=== PATIENT | male | born 1960 | race Caucasian/White ===

== ENCOUNTER 2018-09-02 04:18 | Observation (INO) ==
--- NOTE | 2018-09-02 05:26 | ED ---
HPI General Chief complaint: Abdominal Pain Stated complaint: abd pain Time Seen by Provider: 09/02/18 04:45 Source: patient, EMS, RN notes reviewed and old records reviewed Mode of arrival: EMS Limitations: no limitations History of Present Illness HPI Narrative: 57-year-old man, history of paraplegia following a C-spine injury , presents emergency department with dark emesis, 5 episodes over the past 8 hours or so, in the setting of abdominal bloating, and possibly malfunctioning urinary catheter. Resides in a nursing facility. They sent him over after multiple episodes of what was described as coffee-ground emesis. Denies any blood in his stools. He states they were also having trouble with his catheter clogging but were able to flush it with reportedly successful resolution. He does feel like his abdomen is more more distended. Also some subjective chills. No other complaints. Related Data Home Medications Medication Instructions Recorded Confirmed baclofen 10 mg PO QID 09/02/18 09/02/18 betamethasone dipropionate 1 applic TOPICAL DAILY 09/02/18 09/02/18 docusate sodium [Colace] 100 mg PO BID 09/02/18 09/02/18 famotidine 20 mg PO DAILY 09/02/18 09/02/18 hydrocodone-acetaminophen 1 tab PO Q4H PRN 09/02/18 09/02/18 morphine 30 mg PO Q12H 09/02/18 09/02/18 morphine 30 mg PO Q4HR PRN 09/02/18 09/02/18 multivitamin with minerals 1 tab PO DAILY 09/02/18 09/02/18 nystatin 200,000 unit PO TID 09/02/18 09/02/18 trazodone 100 mg PO DAILY 09/02/18 09/02/18 Allergies Allergy/AdvReac Type Severity Reaction Status Date / Time No Known Allergies Allergy Uncoded 05/16/16 12:53 Review of Systems ROS: all other systems reviewed are negative PMFSH History History Provided By: Patient and Medical Record Medical History Medical History Anxiety (Acute) Gastrointestinal hemorrhage (Acute) Major depressive disorder (Acute) Constipation (Chronic) Neurogenic bladder (Chronic) 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 Tiny area of erythema right SI area. No other evidence of skin breakdown. HEAD: Atraumatic. Normocephalic. EYES: Pupils equal and round. No scleral icterus. No injection or drainage. ENT: No nasal bleeding or discharge. Mucous membranes pink and moist. NECK: Trachea midline. No JVD. CARDIOVASCULAR: Regular rate and rhythm. No murmur appreciated. RESPIRATORY: No accessory muscle use. Clear to auscultation. Breath sounds equal bilaterally. GASTROINTESTINAL: Abdomen appears somewhat distended. Tympanic to percussion. Baclofen pump on the left side of the abdomen. MUSCULOSKELETAL: No obvious deformities. No edema. Contracture deformities. NEUROLOGICAL: Awake and alert. Spastic quadriplegia. Procedures Hemaprompt Stool Procedural Steps Taken: specimen placed in appropriate test area, developer placed on specimen and control areas and controls appropriately positive and negative Hemaprompt Stool Result: positive Course Initial Documented Vital Signs Temperature 100.7 F H 09/02/18 05:29 Pulse Rate 105 H 09/02/18 05:29 Respiratory Rate 16 09/02/18 05:29 Blood Pressure 194/94 H 09/02/18 05:29 Pulse Oximetry 96 09/02/18 05:29 Last Documented Vital Signs Temperature 100.7 F H 09/02/18 05:29 Pulse Rate 105 H 09/02/18 05:29 Respiratory Rate 16 09/02/18 05:29 Blood Pressure 194/94 H 09/02/18 05:29 Pulse Oximetry 95 09/02/18 05:45 Medical Decision Making MDM Narrative Medical decision making narrative: 37-year-old man, quadriplegic, here with vomiting. Abdomen distended. Concern for obstruction. They also report some trouble with this Malone catheter. We will replace this. Will check labs. Reassess. FINAL: Patient with diffuse abdominal distention, distended stomach, constipation distended bowels, likely constipation and ileus. GI bleed also possible. Guaiac was positive. No emesis here but stomach could be full blood. Disimpacted of a large amount of fairly firm stool. Recommend admission for observation, monitoring. I spoke with Dr. Florez, will admit patient. Medical Screen Exam Complete: Yes Emergency Medical Condition: Yes Lab Data Result diagrams: 09/02/18 05:10 09/02/18 05:10 Lab Results 09/02/18 09/02/18 09/02/18 Range/Units 05:10 05:10 05:10 WBC 11.5 H (4.0-11.0) th/mm3 RBC 4.44 L (4.50-5.90) mil/mm3 Hgb 12.9 L (13.0-17.0) gm/dL Hct 39.3 (39.0-51.0) % MCV 88.4 (80.0-100.0) fL MCH 29.1 (27.0-34.0) pg MCHC 32.9 (32.0-36.0) % RDW 15.4 (11.6-17.2) % Plt Count 187 (150-450) th/mm3 MPV 9.0 (7.0-11.0) fL Neut % (Auto) 80.5 H (16.0-70.0) % Lymph % (Auto) 13.3 (9.0-44.0) % [place] % (Auto) 5.8 (0.0-8.0) % Eos % (Auto) 0.0 (0.0-4.0) % Baso % (Auto) 0.4 (0.0-2.0) % Neut # (Auto) 9.3 H (1.8-7.7) th/mm3 Lymph # (Auto) 1.5 (1.0-4.8) th/mm3 [place] # (Auto) 0.7 (0.0-0.9) th/mm3 Eos # (Auto) 0.0 (0.0-0.4) th/mm3 Baso # (Auto) 0.0 (0.0-0.2) th/mm3 WBC Differential . Differential Comment Auto diff final Sodium 136 (136-145) meq/L Potassium 3.7 (3.5-5.1) meq/L Chloride 94 L (98-107) meq/L Carbon Dioxide 33.5 H (21.0-32.0) meq/L Anion Gap 9 (5-15) meq/L BUN 18 (7-18) mg/dL Creatinine 0.42 L (0.60-1.30) mg/dL Estimated GFR Greater than 89 (>89) mL/min Random Glucose 128 H (74-106) mg/dL Lactic Acid 1.0 (0.4-2.0) mmol/L Calcium 8.3 L (8.5-10.1) mg/dL Magnesium 2.1 (1.5-2.5) mg/dL Total Bilirubin 0.4 (0.2-1.0) mg/dL AST 17 (15-37) U/L ALT 16 (12-78) U/L Alkaline Phosphatase 76 (45-117) U/L Total Protein 7.6 (6.4-8.2) g/dL Albumin 3.1 L (3.4-5.0) g/dL Imaging Data Radiologist's impression: Abdomen/Pelvis CT 09/02/18 05:07 CONCLUSION: 1. Consolidation and air bronchograms of the right lung base most characteristic of pneumonia or aspiration. 2. Mild dilatation and mural thickening of the distal esophagus possibly due to an esophagitis. Stomach mildly distended. 3. Severe constipation. Numerous nonobstructing bilateral renal calculi with partial staghorn calculus upper pole left kidney. 4. Previous right hip replacement. Chest X-Ray 09/02/18 05:07 CONCLUSION: Minimal subsegmental opacity in the lungs at the bases. No effusion or pneumothorax. Discharge Plan Discharge Disposition Patient Disposition: 30 Still Patient Physicians Team ED Provider: Vitaly Calderón Primary Care Provider: UNKNOWN, Rxs /Orders / Referrals /Forms Prescriptions: No Action multivitamin with minerals Tablet Extended Release 1 tab PO DAILY RF: 0 famotidine 20 mg Tablet 20 mg PO DAILY RF: 0 trazodone 100 mg Tablet 100 mg PO DAILY RF: 0 baclofen 10 mg Tablet 10 mg PO QID RF: 0 morphine 30 mg Tablet 30 mg PO Q4HR PRN (Reason: Pain) RF: 0 betamethasone dipropionate 0.05 % Cream 1 applic TOPICAL DAILY RF: 0 docusate sodium [Colace] 100 mg Capsule 100 mg PO BID RF: 0 nystatin 150 million unit Powder 200,000 unit PO TID RF: 0 hydrocodone-acetaminophen 10-300 mg Tablet 1 tab PO Q4H PRN (Reason: Pain) RF: 0 morphine 30 mg Tablet Extended Release 12hr 30 mg PO Q12H RF: 0 Status ED Status: With Doctor
[2018-09-02 05:28] LABS: Baso % (Auto) 0.4 % (0.0-2.0); Hematocrit 39.3 % (39.0-51.0); Hemoglobin 12.9 gm/dL (13.0-17.0); Lymph # (Auto) 1.5 th/mm3 (1.0-4.8); Lymph % (Auto) 13.3 % (9.0-44.0); Mean Corpuscular HGB Conc 32.9 % (32.0-36.0); Mean Corpuscular Hemoglobin 29.1 pg (27.0-34.0); Mean Corpuscular Volume 88.4 fL (80.0-100.0); Mono # (Auto) 0.7 th/mm3 (0.0-0.9); Mono % (Auto) 5.8 % (0.0-8.0); Neut # (Auto) 9.3 th/mm3 (1.8-7.7); Neut % (Auto) 80.5 % (16.0-70.0); Platelet Count 187 th/mm3 (150-450); Red Blood Count 4.44 mil/mm3 (4.50-5.90); Red Cell Distribution Width 15.4 % (11.6-17.2); White Blood Count 11.5 th/mm3 (4.0-11.0)
[2018-09-02 05:40] LABS: Albumin 3.1 g/dL (3.4-5.0); Anion Gap 9 meq/L (5-15); Aspartate Aminotransferase 17 U/L (15-37); Blood Urea Nitrogen 18 mg/dL (7-18); Calcium 8.3 mg/dL (8.5-10.1); Carbon Dioxide 33.5 meq/L (21.0-32.0); Chloride 94 meq/L (98-107); Glomerular Filtration Rate Greater Than 89 mL/min (>89); Glucose,Random 128 mg/dL (74-106); Magnesium 2.1 mg/dL (1.5-2.5); Potassium 3.7 meq/L (3.5-5.1); Sodium 136 meq/L (136-145)
[2018-09-02 05:41] LABS: Alanine Aminotransferase 16 U/L (12-78)
[2018-09-02 05:44] LABS: Alkaline Phosphatase 76 U/L (45-117); Total Protein 7.6 g/dL (6.4-8.2)
--- NOTE | 2018-09-02 05:58 | XR ---
EXAM DATE: 09/02/2018 5:46 AM EST AGE/SEX: 57 years / Male INDICATIONS: Abdominal pain. CLINICAL DATA: This is the patient's initial encounter. Patient reports that signs and symptoms have been present for 1 day and indicates a pain score of 6/10. MEDICAL/SURGICAL HISTORY: . Spastic quadriplegia. Neurogenic bladder. Chronic constipation. F usion, cervical. Total right hip replacement. Total bilateral shoulder replacements. COMPARISON: No prior exams available for comparison. FINDINGS: Scattered subsegmental opacity in the lungs. No effusion. No pneumothorax. Tortuous aorta. Previous b ilateral shoulder replacement. CONCLUSION: Minimal subsegmental opacity in the lungs at the bases. No effusion or pneumothorax. Electronically signed by: Ambrocio Holt MD 09/02/2018 5:57 AM EST
--- NOTE | 2018-09-02 06:15 | CT ---
EXAM DATE: 09/02/2018 6:04 AM EST AGE/SEX: 57 years / Male INDICATIONS: Abdominal pain and coffee ground emesis. CLINICAL DATA: This is the patient's initial encounter. Patient reports that signs and symptoms have been present for 2 days and indicates a pain score of 8/10. MEDICAL/SURGICAL HISTORY: . Neurogenic bladder, GI bleed . Right hip replacement ORAL CONTRAST: No oral contrast ingested. RADIATION DOSE: 6.98 CTDI (mGy) COMPARISON: No prior exams available for comparison. TECHNIQUE: Multiple contiguous axial images were obtained through the abdomen and pelvis following b olus infusion of 71 ml Omnipaque 350 (iohexol) nonionic water-soluble contrast as a single exam dos e. No oral contrast ingested. Using automated exposure control and adjustment of the mA and/or kV ac cording to patient size, radiation dose was kept as low as reasonably achievable to obtain optimal di agnostic quality images. DICOM format image data is available electronically for review and comparis on. FINDINGS: There is focal consolidation with air bronchograms at the right lung base most characteristic of bron chopneumonia. There is some dilatation and mural thickening of the distal esophagus. There is dilatat ion of the stomach with a large air-fluid level. No acute findings in the liver, spleen, adrenals or pancreas. Numerous bilateral renal calculi with p artial staghorn calculus upper pole left kidney. No hydronephrosis. There is severe constipation. Previous right hip replacement. Malone catheter present in bladder. Bone s osteopenic. CONCLUSION: 1. Consolidation and air bronchograms of the right lung base most characteristic of pneumonia or asp iration. 2. Mild dilatation and mural thickening of the distal esophagus possibly due to an esophagitis. Stom ach mildly distended. 3. Severe constipation. Numerous nonobstructing bilateral renal calculi with partial staghorn calcul us upper pole left kidney. 4. Previous right hip replacement. Electronically signed by: Ambrocio Holt MD 09/02/2018 6:14 AM EST
[2018-09-02] MEDS ORDERED: Bisacodyl 10 MG Supp RECTAL PRN (06:51)
[2018-09-02] MEDS ORDERED: Acetaminophen 325 MG Tablet PO PRN (06:51)
[2018-09-02] MEDS ORDERED: Non-Formulary Drug (Hydrocodone-Acetaminophen [Hydrocodone-Acetaminophen] 1 TAB) PO PRN (10:56)
[2018-09-02] MEDS ORDERED: Mineral Oil Enema 118 ML Bottle RECTAL PRN (10:58)
[2018-09-02] MEDS: Docusate Sodium 100 MG Capsule PO SCH ×2 (11:00→22:34)
[2018-09-02] MEDS: Famotidine 20 MG Tablet PO SCH (11:00)
[2018-09-02] MEDS: Morphine Sulfate 30 MG SR Tablet PO SCH ×2 (11:00→22:34)
--- NOTE | 2018-09-02 11:07 | P.HPIM ---
History of Present Illness Primary Care Physician: UNKNOWN History of Present Illness: 57-yo M [facility] resident with h/o quadriplegia following a C-spine injury presented with coffee ground emesis x1 day. Denied hematochezia or melena. He has no abdominal pain. He reports abdominal bloating and constipation. He vomited twice prior to admission. He has not had any fever,chills, or shortness of breath. There was suspicion for urinary catheter malfunction but this was successfully flushed. ROS is negative. On presentation patient had stable vitals, labs H/h 12.9/39.3, CT abdo/pelvis-- severe constipation, RLL consolidation suspicious for pneumonia or aspiration, non obstructive renal calculi, esophagitis. Patient had stool disimpaction done in ER. GI consulted. 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) Surgical History Surgical History History of total right hip replacement (Chronic) S/p bilateral shoulder joint replacement (Chronic) Social History Social History Substance History: No History of Abuse Second Hand Smoke Exposure: No Smoking Status: Former smoker How Often Do You Have a Drink Containing Alcohol: Never Recent Travel in [facility] within the Last 8 Weeks: No Recent Out of Country Travel within the Last 8 Weeks: No Immunization History Tetanus Immunization: Unsure Medications and Allergies Allergies Allergy/AdvReac Type Severity Reaction Status Date / Time No Known Allergies Allergy Uncoded 05/16/16 12:53 Home Medications Medication Instructions Recorded Confirmed Type baclofen 10 mg PO QID 09/02/18 09/02/18 History betamethasone dipropionate 1 applic TOPICAL DAILY 09/02/18 09/02/18 History docusate sodium [Colace] 100 mg PO BID 09/02/18 09/02/18 History famotidine 20 mg PO DAILY 09/02/18 09/02/18 History hydrocodone-acetaminophen 1 tab PO Q4H PRN 09/02/18 09/02/18 History morphine 30 mg PO Q12H 09/02/18 09/02/18 History morphine 30 mg PO Q4HR PRN 09/02/18 09/02/18 History multivitamin with minerals 1 tab PO DAILY 09/02/18 09/02/18 History nystatin 200,000 unit PO TID 09/02/18 09/02/18 History trazodone 100 mg PO DAILY 09/02/18 09/02/18 History Active Medications: Active Medications Acetaminophen (Tylenol) 650 mg PO Q4H PRN PRN Reason: Temp > 100.4 Baclofen (Lioresal) 10 mg PO QID [facility] Betamethasone Dipropionate (Diprosone 0.05% Cream) 1 applicatio TOPICAL DAILY [facility] Bisacodyl (Dulcolax Supp) 10 mg RECTAL DAILY PRN PRN Reason: SEVERE CONSITIPATION Docusate Sodium (Colace) 100 mg PO BID [facility] Famotidine (Pepcid) 20 mg PO DAILY [facility] Mineral Oil (Fleet Mineral Oil Enema) 118 ml RECTAL Q24H PRN PRN Reason: CONSTIPATION Morphine Sulfate (Msir) 30 mg PO Q4HR PRN PRN Reason: Pain Non-Formulary Medication (Morphine [Morphine]) 30 mg PO Q12H [facility] Non-Formulary Medication (Multivitamin With Minerals [Multivitamin With Minerals ]) 1 tab PO DAILY [facility] Non-Formulary Medication (Nystatin [Nystatin]) 200,000 unit PO TID [facility] Ondansetron HCl (Zofran Inj) 4 mg IV.PUSH Q6H PRN PRN Reason: NAUSEA OR VOMITING Polyethylene Glycol (Miralax) 17 gm PO BID [facility] Sennosides (Senokot) 17.2 mg PO Q12H PRN PRN Reason: Moderate Constipation Trazodone HCl (Desyrel) 100 mg PO [facility] Physical Exam Vital signs: Last Vital Signs Temp 99.5 F 09/02/18 09:02 Pulse 97 H 09/02/18 09:02 Resp 12 09/02/18 09:02 BP 118/58 L 09/02/18 09:02 Pulse Ox 92 L 09/02/18 09:02 Intake & Output 08/31/18 09/01/18 09/02/18 09/03/18 06:59 06:59 06:59 06:59 Weight 63.503 kg Narrative: GENERAL: middle aged man, not in distress. NECK-no JVD HEENT:not pale,anicteric, dry oral mucous membranes CARDIOVASCULAR: Regular rate and rhythm without murmurs, gallops, or rubs. RESPIRATORY: Clear to auscultation. Breath sounds equal bilaterally. No wheezes , rales, or rhonchi. GASTROINTESTINAL: Abdomen soft, non-tender, nondistended. Normal active bowel sounds MUSCULOSKELETAL: Extremities without clubbing, cyanosis, or edema. atrophied and contracted extremities. NEURO: Alert & Oriented x4 to person, place, time, situation. Results Labs CBC & Chem 7: 09/02/18 17:00 09/02/18 05:10 Imaging Impressions Abdomen/Pelvis CT 09/02/18 05:07 CONCLUSION: 1. Consolidation and air bronchograms of the right lung base most characteristic of pneumonia or aspiration. 2. Mild dilatation and mural thickening of the distal esophagus possibly due to an esophagitis. Stomach mildly distended. 3. Severe constipation. Numerous nonobstructing bilateral renal calculi with partial staghorn calculus upper pole left kidney. 4. Previous right hip replacement. Chest X-Ray 09/02/18 05:07 CONCLUSION: Minimal subsegmental opacity in the lungs at the bases. No effusion or pneumothorax. Caprini VTE Risk Assessment Caprini VTE Risk Assessment: Moderate/High Risk (score >= 2) Caprini Risk Assessment Model: Point Value = 1 Point Value = 2 Point Value = 3 Point Value = 5 Age 41-60 Minor surgery BMI > 25 kg/m2 Swollen legs Varicose veins or History of unexplained or recurrent spontaneous Oral contraceptives or hormone replacement Sepsis (< 1 month) Serious lung disease, including pneumonia (< 1 month) Abnormal pulmonary function Acute myocardial infarction Congestive heart failure (< 1 month) History of inflammatory bowel disease Medical patient at bed rest Age 61-74 Arthroscopic surgery Major open surgery (> 45 min) Laparoscopic surgery (> 45 min) Malignancy Confined to bed (> 72 hours) Immobilizing plaster cast Central venous access Age >= 75 History of VTE Family history of VTE Factor V Leiden Prothrombin [id number] Lupus anticoagulant Anticardiolipin antibodies Elevated serum homocysteine Heparin-induced thrombocytopenia Other congenital or acquired thrombophilia Stroke (< 1 month) Elective arthroplasty Hip, pelvis, or leg fracture Acute spinal cord injury (< 1 month) Prophylaxis Regimen: Total Risk Factor Score Risk Level Prophylaxis Regimen 0-1 Low Early ambulation 2 Moderate Order ONE of the following: *Sequential Compression Device (SCD) *Heparin 5000 units SQ BID 3-4 Higher Order ONE of the following medications: *Heparin 5000 units SQ TID *Enoxaparin/Lovenox 40 mg SQ daily (WT < 150 kg, CrCl > 30 mL/min) *Enoxaparin/Lovenox 30 mg SQ daily (WT < 150 kg, CrCl > 10-29 mL/min) *Enoxaparin/Lovenox 30 mg SQ BID (WT < 150 kg, CrCl > 30 mL/min) AND/OR *Sequential Compression Device (SCD) 5 or more Highest Order ONE of the following medications: *Heparin 5000 units SQ TID (Preferred with Epidurals) *Enoxaparin/Lovenox 40 mg SQ daily (WT < 150 kg, CrCl > 30 mL/min) *Enoxaparin/Lovenox 30 mg SQ daily (WT < 150 kg, CrCl > 10-29 mL/min) *Enoxaparin/Lovenox 30 mg SQ BID (WT < 150 kg, CrCl > 30 mL/min) AND *Sequential Compression Device (SCD) Assessment and Plan Plan 57 yo M with quadriplegia who presented with coffee ground emesis and constipation. 1.Coffee ground emesis--likely due to gastritis. CT abdo/pelvis with evidence of esophagitis EGD done today shows gastritis. biopsies were taken. keep on PPIs. check stool for H pylori antigen. appreciate GI recs. 2.suspected pneumonia vs aspiration--patient without shortness of breath. He reports h/o fever,had episode documented at 100.8 on presentation. It is possible he may have inadvertently aspirated during the vomiting episodes prior to admission. he is saturating appropriately.will cover with Ceftriaxone/ Azithromycin for now.check procalcitonin level,if negative then can dc antibiotic. offer incentive spirometry. 3.Severe Constipation:likely due to Narcotics. keep on bowel regimen--senna, miralax, prn enemas. 4.Quadriplegia,chronic pain, muscle spasms: coleen ray checked--patient of Morphine ER 30mg q12h, and Morphine IR 30mg q4hr prn. continue same. DVT ppx with subcut heparin. [place] Prescription Drug Monitoring Database has been queried and verified prior to prescribing the controlled substance. [facility] [facility] Prescription Drug Monitoring Database has been queried and verified prior to prescribing the controlled substance.
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
[2018-09-02 11:35] LABS: Hematocrit 36.7 % (39.0-51.0); Hemoglobin 12.4 gm/dL (13.0-17.0)
[2018-09-02] MEDS ORDERED: Sugammadex Inj 200 MG/2 ML Vial IV.PUSH ONE ×2 (11:50→12:13)
[2018-09-02] MEDS: Pantoprazole Inj 40 MG Vial IV.PUSH SCH (12:00)
--- NOTE | 2018-09-02 12:30 | GIPROC ---
[facility] [address] [place] [facility], [address] EGD PROCEDURE REPORT EXAM DATE: 09/02/2018 PATIENT NAME: Lionel Carrero MR #: [id number] BIRTHDATE: 1960 ATTENDING: Laury Rushing MD ORDER #: [id number] [employer]LECT[employer] DESIGN ENGINEER: Teresa Handley and Jin Dillard STATUS: inpatient INDICATIONS: The patient is a 57 yr old male here for an EGD due to hematemesis PROCEDURE PERFORMED: EGD w/ biopsy MEDICATIONS: Per Anesthesia and None. TOPICAL ANESTHETIC: none CONSENT: The patient understands the risks and benefits of the procedure and understands that these risks include, but are not limited to: sedation, allergic reaction, infection, perforation and/or bleeding. Alternative means of evaluation and treatment include, among others: physical exam, x-rays, and/or surgical intervention. The patient elects to proceed with this endoscopic procedure. medical equipment was checked for proper function. Hand hygiene and appropriate measures for infection prevention was taken. After the risks, benefits and alternatives of the procedure were thoroughly explained, Informed consent was verified, confirmed and timeout was successfully executed by the treatment team. The patient was anesthetized with topical anesthesia and the Pentax EG-[id number] endoscope was introduced through the mouth and advanced to the second portion of the duodenum. Retroflexion was performed and was normal The gastroscope was then slowly withdrawn and removed. ESOPHAGUS: The esophagus was otherwise normal. STOMACH: A few small polypoid shaped pedunculated polyps were found in the entire examined stomach. A polypectomy was performed with a cold forceps. The resection was complete and the polyp tissue was completely retrieved. There was moderate and erosive gastritis in the gastric antrum. Multiple biopsies were performed using cold forceps. Sample sent for histology. DUODENUM: The duodenal mucosa appeared normal. ADVERSE EVENTS: There were no complications. IMPRESSIONS: 1. The esophagus was otherwise normal 2. Few small pedunculated polyps were found in the entire examined stomach; polypectomy was performed 3. There was gastritis in the gastric antrum; multiple biopsies were performed 4. Normal duodenal mucosa 5. Retroflexion was performed and was normal RECOMMENDATIONS: 1. Await biopsy results. Biopsy results will not be ready for 7-10 days. If you don't hear from us in two weeks, call our office for biopsy results. 2. Continue PPI PATIENT CONDITION: stable DISPOSITION: Observation REPEAT EXAM: NONE Laury Rushing MD eSigned: Laury Rushing MD 09/02/2018 12:30 PM cc: PATIENT NAME: Lionel Carrero MR#: [id number]
[2018-09-02] MEDS ORDERED: fentaNYL Citrate Inj 100 MCG/2 ML Ampul ONE (12:45)
[2018-09-02] MEDS: Baclofen 10 MG Tablet PO SCH ×3 (13:00→22:34)
[2018-09-02] MEDS ORDERED: Nystatin Liq 500,000 UNIT/5 ML UDC PO SCH (14:15)
[2018-09-02 17:20] LABS: Hemoglobin 11.3 gm/dL (13.0-17.0)
[2018-09-02] MEDS: Morphine Sulfate 30 MG IR Tablet PO PRN (17:59)
[2018-09-02] MEDS: Azithromycin 250 MG Tablet PO SCH (20:53)
[2018-09-02] MEDS: traZODone 100 MG Tablet PO SCH (22:34)
[2018-09-02] MEDS: Polyethylene Glycol 3350 17 GM Packet PO SCH (22:34)
[2018-09-02 23:54] LABS: Hematocrit 32.9 % (39.0-51.0); Hemoglobin 11.3 gm/dL (13.0-17.0)
[2018-09-03] MEDS: Pantoprazole Inj 40 MG Vial IV.PUSH SCH ×2 (01:11→12:12)
[2018-09-03] MEDS: Morphine Sulfate 30 MG IR Tablet PO PRN ×3 (06:28→18:37)
[2018-09-03 07:24] LABS: Baso % (Auto) 0.3 % (0.0-2.0); Eos % (Auto) 0.2 % (0.0-4.0); Hemoglobin 10.9 gm/dL (13.0-17.0); Lymph # (Auto) 2.3 th/mm3 (1.0-4.8); Lymph % (Auto) 21.8 % (9.0-44.0); Mean Corpuscular HGB Conc 34.1 % (32.0-36.0); Mean Corpuscular Hemoglobin 29.7 pg (27.0-34.0); Mean Corpuscular Volume 87.3 fL (80.0-100.0); Mean Platelet Volume 8.9 fL (7.0-11.0); Mono # (Auto) 0.8 th/mm3 (0.0-0.9); Mono % (Auto) 7.8 % (0.0-8.0); Neut # (Auto) 7.4 th/mm3 (1.8-7.7); Neut % (Auto) 69.9 % (16.0-70.0); Platelet Count 155 th/mm3 (150-450); Red Blood Count 3.66 mil/mm3 (4.50-5.90); Red Cell Distribution Width 15.3 % (11.6-17.2); White Blood Count 10.6 th/mm3 (4.0-11.0)
[2018-09-03 07:45] LABS: Anion Gap 9 meq/L (5-15); Blood Urea Nitrogen 23 mg/dL (7-18); Calcium 8.1 mg/dL (8.5-10.1); Carbon Dioxide 31.7 meq/L (21.0-32.0); Chloride 93 meq/L (98-107); Glomerular Filtration Rate Greater Than 89 mL/min (>89); Glucose,Random 69 mg/dL (74-106); Potassium 3.2 meq/L (3.5-5.1); Sodium 134 meq/L (136-145)
[2018-09-03] MEDS: Famotidine 20 MG Tablet PO SCH (08:05)
[2018-09-03] MEDS: Polyethylene Glycol 3350 17 GM Packet PO SCH ×2 (08:05→23:37)
[2018-09-03] MEDS: Baclofen 10 MG Tablet PO SCH ×3 (08:06→18:36)
[2018-09-03] MEDS: Multivitamin/Minerals Therapeutic Tablet PO SCH (08:06)
[2018-09-03] MEDS: Azithromycin 250 MG Tablet PO SCH (08:06)
[2018-09-03] MEDS: Docusate Sodium 100 MG Capsule PO SCH ×2 (08:06→23:37)
[2018-09-03] MEDS ORDERED: Sodium Chlor 0.9% Inj 250 ML IV.SIG ONE (11:37)
--- NOTE | 2018-09-03 11:40 | P.PNIM ---
Subjective Interval history: no complaints. Physical Exam Vital signs: Last Vital Signs Temp 97.8 F 09/03/18 10:49 Pulse 82 09/03/18 10:49 Resp 18 09/03/18 10:49 BP 88/44 L 09/03/18 10:49 Pulse Ox 93 L 09/03/18 10:49 Intake & Output 09/01/18 09/02/18 09/03/18 09/04/18 06:59 06:59 06:59 06:59 Intake Total 0 / 0 Output Total 1100 / 1100 Balance -1100 / -1100 Weight 63.503 kg Narrative: GENERAL: middle aged man, not in distress. NECK-no JVD HEENT:not pale,anicteric, dry oral mucous membranes CARDIOVASCULAR: Regular rate and rhythm without murmurs, gallops, or rubs. RESPIRATORY: Clear to auscultation. Breath sounds equal bilaterally. No wheezes , rales, or rhonchi. GASTROINTESTINAL: Abdomen soft, non-tender, nondistended. Normal active bowel sounds MUSCULOSKELETAL: Extremities without clubbing, cyanosis, or edema. atrophied and contracted extremities. NEURO: Alert & Oriented x4 to person, place, time, situation. Urinary Catheter Management Indwelling Urethral Catheter: Cath placed during this visit: yes Insertion date: 09/02/18 Insertion time: 05:20 Results Labs CBC & Chem 7: 09/03/18 06:40 09/03/18 06:40 Labs: Microbiology 09/02/18 05:10 Blood - Peripheral Aerobic Blood Culture - Preliminary No growth in 1 day 09/02/18 05:10 Blood - Peripheral Anaerobic Blood Culture - Preliminary No growth in 1 day 09/02/18 05:15 Blood - Peripheral Aerobic Blood Culture - Preliminary No growth in 1 day 09/02/18 05:15 Blood - Peripheral Anaerobic Blood Culture - Preliminary No growth in 1 day Assessment and Plan (1) Coffee ground emesis: Code(s): K92.0 - Hematemesis Status: Acute (2) Constipation: Code(s): K59.00 - Constipation, unspecified Status: Acute Plan 57 yo M with quadriplegia who presented with coffee ground emesis and constipation. 1.Coffee ground emesis--likely due to gastritis. CT abdo/pelvis with evidence of esophagitis EGD done 09/02 showed gastritis. biopsies were taken. keep on PPIs. check stool for H pylori antigen. appreciate GI recs. 2.suspected pneumonia vs aspiration--patient without shortness of breath. He reports h/o fever,had episode documented at 100.8 on presentation. It is possible he may have inadvertently aspirated during the vomiting episodes prior to admission. he is saturating appropriately.will cover with Ceftriaxone/ Azithromycin for now.check procalcitonin level,if negative then can dc antibiotic. offer incentive spirometry. noted low BP this am, give fluid bolus and re-evaluate. 3.Severe Constipation:likely due to Narcotics. keep on bowel regimen--senna, miralax, prn enemas--patient now has bowel movements. 4.Quadriplegia,chronic pain, muscle spasms: e cory checked--patient of Morphine ER 30mg q12h, and Morphine IR 30mg q4hr prn. continue same. DVT ppx with subcut heparin. [employer] Prescription Drug Monitoring Database has been queried and verified prior to prescribing the controlled substance. [employer] Prescription Drug Monitoring Database has been queried and verified prior to prescribing the controlled substance. _ (1) Constipation Qualifiers: Constipation type:
[2018-09-03] MEDS: Morphine Sulfate 30 MG SR Tablet PO SCH ×2 (11:52→23:37)
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
[2018-09-03] MEDS: traZODone 100 MG Tablet PO SCH (23:37)
[2018-09-04 00:31] VITALS: RESP 16
[2018-09-04] MEDS: Pantoprazole Inj 40 MG Vial IV.PUSH SCH ×2 (01:12→12:18)
[2018-09-04] MEDS: Baclofen 10 MG Tablet PO SCH ×4 (01:12→17:46)
[2018-09-04] MEDS: Morphine Sulfate 30 MG IR Tablet PO PRN (06:14)
[2018-09-04] MEDS: Azithromycin 250 MG Tablet PO SCH (08:31)
[2018-09-04] MEDS: Docusate Sodium 100 MG Capsule PO SCH (08:31)
[2018-09-04] MEDS: Multivitamin/Minerals Therapeutic Tablet PO SCH (08:31)
[2018-09-04] MEDS: Polyethylene Glycol 3350 17 GM Packet PO SCH (08:31)
[2018-09-04] MEDS: Famotidine 20 MG Tablet PO SCH (08:31)
[2018-09-04] MEDS: Morphine Sulfate 30 MG SR Tablet PO SCH (10:15)
--- NOTE | 2018-09-04 10:20 | P.PN ---
Subjective Interval history: Follow up for hematemesis, pneumonia vs aspiration. The patient reports feeling well today. He denies any further episodes of vomiting/hematemesis. He states he did have a large BM this morning. Denies any fevers/chills, cough, chest pain , or shortness of breath. Denies any other medical complaints at this time. Physical Exam Vital signs: Vital Signs 09/03/18 10:49 09/03/18 12:22 09/03/18 13:34 Temperature 97.8 F Pulse Rate 82 Respiratory Rate 18 Blood Pressure 88/44 L 100/68 111/72 Pulse Oximetry 93 L 09/03/18 16:00 09/03/18 20:00 09/04/18 00:00 Temperature 98.3 F 98.6 F 98.5 F Pulse Rate 77 92 H 80 Respiratory Rate 18 17 16 Blood Pressure 84/49 L 143/76 H 110/56 L Pulse Oximetry 92 L 95 94 L 09/04/18 09:51 Temperature Pulse Rate 80 Respiratory Rate Blood Pressure Pulse Oximetry Intake & Output 09/03/18 09/04/18 09/04/18 18:59 06:59 18:59 Intake Total 250 / 250 620 / 620 Output Total 825 / 825 2600 / 2600 Balance -575 / -575 -1979 / -1979 Intake: IV 250 / 250 NS Inj 250 ML @ 500 mls/hr IV. 250 / 250 SIG BOLUS ONE Rx#:[id number] Oral 620 / 620 Output: Urine 1050 / 1050 Urine Amount (Catheter) 825 / 825 1550 / 1550 Indwelling Urethral Catheter 825 / 825 1550 / 1550 Other: Date of Last Bowel Movement 09/03/18 09/03/18 Narrative: GENERAL: Well-nourished, well-developed middle aged male patient in [facility]. SKIN: Warm and dry. No rash. HEENT: Normocephalic. Atraumatic. Pupils equal and round. Mucous membranes pink and moist. CARDIOVASCULAR: Regular rate and rhythm. No murmur appreciated. RESPIRATORY: No accessory muscle use. Clear to auscultation. Breath sounds equal bilaterally. GASTROINTESTINAL: Abdomen soft, non-tender, nondistended. Normoactive bowel sounds x4. MUSCULOSKELETAL: No obvious deformities. Extremities without clubbing, cyanosis , or edema. NEUROLOGICAL: Awake and alert. Paraplegic with atrophied/contracted extremities. Normal speech. PSYCHIATRIC: Appropriate mood and affect; insight and judgment normal. - Urinary Catheter Management Indwelling Urethral Catheter Cath placed during this visit: yes Reason for continuing: Other continuation reason Insertion date: 09/02/18 Insertion time: 05:20 Results - Labs CBC & Chem 7: 09/03/18 06:40 09/03/18 06:40 Microbiology 09/02/18 05:10 Blood - Peripheral Aerobic Blood Culture - Preliminary No growth in 1 day 09/02/18 05:10 Blood - Peripheral Anaerobic Blood Culture - Preliminary No growth in 1 day 09/02/18 05:15 Blood - Peripheral Aerobic Blood Culture - Preliminary No growth in 1 day 09/02/18 05:15 Blood - Peripheral Anaerobic Blood Culture - Preliminary No growth in 1 day - Imaging Abdomen/Pelvis CT 09/02/18 05:07 CONCLUSION: 1. Consolidation and air bronchograms of the right lung base most characteristic of pneumonia or aspiration. 2. Mild dilatation and mural thickening of the distal esophagus possibly due to an esophagitis. Stomach mildly distended. 3. Severe constipation. Numerous nonobstructing bilateral renal calculi with partial staghorn calculus upper pole left kidney. 4. Previous right hip replacement. Chest X-Ray 09/02/18 05:07 CONCLUSION: Minimal subsegmental opacity in the lungs at the bases. No effusion or pneumothorax. Assessment and Plan - Assessment (1) Coffee ground emesis Code(s): K92.0 - Hematemesis Status: Acute (2) Constipation Code(s): K59.00 - Constipation, unspecified Status: Acute - Plan 57 yo M with quadriplegia who presented with coffee ground emesis and constipation. GI Bleed/Coffee ground emesis--likely due to gastritis. -CT abd/pelvis reviewed, shows Mild dilatation and mural thickening of the distal esophagus possibly due to an esophagitis. Stomach mildly distended. -GI Consulted -EGD 09/02 showed gastritis. biopsies were taken. -Continue on PPI -Monitor H&H, slowly trended down from 12.9 to 10.9, however also receiving IVF hydration -Appreciate GI recommendations Possible pneumonia vs aspiration--patient without cough/SOB, however had episode of fever documented at 100.8 on presentation. It is possible he may have inadvertently aspirated during the vomiting episodes prior to admission. -Change antibiotics from Rocephin/Azithro to po Augmentin -Wean off oxygen Severe Constipation: suspect opiate induced, patient on chronic pain meds -CT abd/pelvis showed severe constipation -keep on bowel regimen--senna, miralax, prn enemas -patient now having BMs, most recently this morning 08/25 Quadriplegia,chronic pain, muscle spasms: chronic -e-forsce checked and verified patient is on Morphine ER 30mg q12h, and Morphine IR 30mg q4hr prn., will continue DVT ppx with subcut heparin. Discharge Planning: Possible discharge back to [facility] when cleared by GI.
[2018-09-04] MEDS ORDERED: Amoxicillin/Clavulanate 875/125 MG Tablet PO SCH (12:00)
[2018-09-04 12:33] VITALS: BP 92/54; PULSE 70; TEMP 98.3; O2SAT 96
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
--- NOTE | 2018-09-04 16:29 | P.DS ---
Date of admission: 09/02/18 06:51 Primary care physician: UNKNOWN Attending physician on discharge: Filippo Fang Anticipated date of discharge: 09/05/18 Brief History from admission: 57-yo M [facility] resident with h/o quadriplegia following a C-spine injury presented with coffee ground emesis x1 day. Denied hematochezia or melena. He has no abdominal pain. He reports abdominal bloating and constipation. He vomited twice prior to admission. He has not had any fever,chills, or shortness of breath. There was suspicion for urinary catheter malfunction but this was successfully flushed. ROS is negative. On presentation patient had stable vitals, labs H/h 12.9/39.3, CT abdo/pelvis-- severe constipation, RLL consolidation suspicious for pneumonia or aspiration, non obstructive renal calculi, esophagitis. Patient had stool disimpaction done in ER. GI consulted. Patient update on day of discharge: Follow up for hematemesis, pneumonia vs aspiration. The patient reports feeling well today. He denies any further episodes of vomiting/hematemesis. He states he did have a large BM this morning. Denies any fevers/chills, cough, chest pain , or shortness of breath. Denies any other medical complaints at this time. DS: Diagnosis - Discharge Diagnosis (1) Coffee ground emesis Status: Acute (2) Constipation Status: Acute DS: Medications - Discharge Medications Prescriptions: amoxicillin-pot clavulanate 1 tab PO Q12HR 7 Days #14 tab pantoprazole [Protonix] 40 mg PO DAILY 30 Days #30 tab polyethylene glycol 3350 17 gm PO BID 30 Days each sennosides [Senna Lax] 17.2 mg PO Q12H PRN 30 Days tab PRN Reason: Moderate Constipation DS: Summary Hospital Course: 57 yo M with quadriplegia who presented with coffee ground emesis and constipation. GI Bleed/Coffee ground emesis--likely due to gastritis. Patient admitted with episodes of hematemesis. CT abd/pelvis reviewed, shows Mild dilatation and mural thickening of the distal esophagus possibly due to an esophagitis; Stomach mildly distended. GI Consulted. S/p EGD 09/02 showed gastritis. biopsies were taken. Continued on PPI. Monitor H&H, slowly trended down from 12.9 to 10.9, however also receiving IVF hydration. Patient with no further episodes of hematemesis and is tolerating oral intake. Cleared for discharge by GI on 09/04. Possible pneumonia vs aspiration--patient without cough/SOB, however had episode of fever documented at 100.8 on presentation. It is possible he may have inadvertently aspirated during the vomiting episodes prior to admission. Changed antibiotics from Rocephin/Azithro to po Augmentin for aspiration coverage. Patient stable off oxygen on day of discharge. Stable. Severe Constipation: suspect opiate induced, patient on chronic pain meds. CT abd/pelvis showed severe constipation. Keep on bowel regimen--senna, miralax, prn enemas. Patient now having BMs, most recently this morning 09/04. Stable for discharge. Continue bowel regimen at [facility]. Quadriplegia,chronic pain, muscle spasms: chronic. E-forsce checked and verified patient is on Morphine ER 30mg q12h, and Morphine IR 30mg q4hr prn., continued regimen. - Time Spent with Patient Total time spent providing and/or coordinating discharge services: Greater than 30 minutes Exam Vital signs: Vital Signs 09/03/18 20:00 09/04/18 00:00 09/04/18 09:51 Temperature 98.6 F 98.5 F Pulse Rate 92 H 80 80 Respiratory Rate 17 16 Blood Pressure 143/76 H 110/56 L Pulse Oximetry 95 94 L 09/04/18 12:32 Temperature 98.3 F Pulse Rate 70 Respiratory Rate 16 Blood Pressure 92/54 L Pulse Oximetry 96 Intake & Output 09/03/18 09/04/18 09/04/18 18:59 06:59 18:59 Intake Total 250 / 250 620 / 620 Output Total 825 / 825 2600 / 2600 Balance -575 / -575 -1979 / Intake: IV 250 / 250 NS Inj 250 ML @ 500 mls/hr IV. 250 / 250 SIG BOLUS ONE Rx#:[id number] Oral 620 / 620 Output: Urine 1050 / 1050 Urine Amount (Catheter) 825 / 825 1550 / 1550 Indwelling Urethral Catheter 825 / 825 1550 / 1550 Other: Date of Last Bowel Movement 09/03/18 09/03/18 Narrative: GENERAL: Well-nourished, well-developed middle aged male patient in [facility]. SKIN: Warm and dry. No rash. HEENT: Normocephalic. Atraumatic. CARDIOVASCULAR: Regular rate and rhythm. No murmur appreciated. RESPIRATORY: No accessory muscle use. Clear to auscultation. Breath sounds equal bilaterally. GASTROINTESTINAL: Abdomen soft, non-tender, nondistended. Normoactive bowel sounds x4. MUSCULOSKELETAL: No obvious deformities. Extremities without clubbing, cyanosis , or edema. NEUROLOGICAL: Awake and alert. Paraplegic with atrophied/contracted extremities. Normal speech. PSYCHIATRIC: Appropriate mood and affect; insight and judgment normal. Results Procedures completed during hospitalization: 09/02/2018 EGD: 1. The esophagus was otherwise normal 2. Few small pedunculated polyps were found in the entire examined stomach; polypectomy was performed 3. There was gastritis in the gastric antrum; multiple biopsies were performed 4. Normal duodenal mucosa 5. Retroflexion was performed and was normal. Pending studies at discharge: Pending at discharge 09/02/18 09:13 Surgical [PTH] Routine Labs on day of discharge: Preliminary micro results at discharge 09/02/18 05:10 Aerobic Blood Culture - Preliminary Blood - Peripheral No growth in 2 days Anaerobic Blood Culture - Preliminary No growth in 2 days 09/02/18 05:15 Aerobic Blood Culture - Preliminary Blood - Peripheral No growth in 2 days Anaerobic Blood Culture - Preliminary No growth in 2 days - Impressions ITS Impressions Abdomen/Pelvis CT 09/02/18 05:07 CONCLUSION: 1. Consolidation and air bronchograms of the right lung base most characteristic of pneumonia or aspiration. 2. Mild dilatation and mural thickening of the distal esophagus possibly due to an esophagitis. Stomach mildly distended. 3. Severe constipation. Numerous nonobstructing bilateral renal calculi with partial staghorn calculus upper pole left kidney. 4. Previous right hip replacement. Chest X-Ray 09/02/18 05:07 CONCLUSION: Minimal subsegmental opacity in the lungs at the bases. No effusion or pneumothorax. Discharge Plan - Discharge Disposition Patient Disposition: Discharge to SNF - Discharge Condition Condition: Stable - Discharge Order Discharge Orders: Discharge Order (Routine); Ordered 09/04/18 Ordered By: Kayley Maria - Discharge Details Anticipated Discharge Date: 09/04/18 - Physicians Team Primary Care Provider: UNKNOWN, Attending Provider: Filippo Fang Other Providers: Laury Rushing MD ; [facility],Agency
== END 2018-09-04 18:10 ==
LOC: NEPE 04:18 → NEDA 04:18 → NEPHCDU 08:50
PROVIDERS: ADMIT Hospitalist; ATTEND Hospitalist
PROC: PANENDO (2018-09-02 11:54)